=== PATIENT | male | born 1955 | race Hispanic/Latino ===

== ENCOUNTER 2017-07-30 16:26 | Emergency (ER) | payer MEDICAID, OTHER ==
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
[2017-07-30] MEDS ORDERED: NORCO 5/325 PO ONE (20:51)
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
[2017-07-30] MEDS ORDERED: TORADOL IM ONE (20:52)
[2017-07-30] MEDS ORDERED: ZOFRAN ODT PO ONE (20:52)
[2017-07-30 21:22] VITALS: BP 142/70
== END 2017-07-30 21:22 | disposition home or self-care (01) ==
LOC: ED 16:26
DX: G44.319 Acute post-traumatic headache, not intractable (principal); I10 Essential (primary) hypertension; F17.200 Nicotine dependence, unspecified, uncomplicated; V49.49XA Driver injured in collision with other motor vehicles in traffic accident, initial encounter; Y93.89 Activity, other specified; Y92.89 Other specified places as the place of occurrence of the external cause; Y99.8 Other external cause status
CPT/HCPCS: 70450; 96372; 99283; J1885; Q0162